=== PATIENT | male | born 1945 | race African-American/Black ===

== ENCOUNTER 2019-06-15 17:53 | Inpatient (IN) | payer MEDICARE ==
[~2019-06-15] VITALS: Ht 190.5 cm; Wt 91.2 kg
[~2019-06-15 17:53] MED LIST: BENI5; HYDR12.529; [UNRECOGNIZED DRUG - OTHER]
[2019-06-15 18:30] VITALS: BP 141/66
[2019-06-15] MEDS ORDERED: ACETAMINOPHEN 325MG TABLET PO PRN (19:30)
[2019-06-15 19:40] VITALS: BP 121/63
[2019-06-15 20:00] VITALS: BP 121/63
[2019-06-15] MEDS ORDERED: DEXTROSE 50% WATER 50ML SYRINGE IV PRN (20:45)
[2019-06-15] MEDS: INSULIN LISPRO 100 UNITS/ML SUBCUT SCH (21:34)
[2019-06-15] MEDS: BLOOD SUGAR DIAGNOSTIC STRIP TEST SCH (21:35)
[2019-06-15 22:00] VITALS: BP 151/72
[2019-06-15 22:51] LABS: CLARITY URINE CLEAR (CLEAR); COLOR URINE YELLOW (YELLOW); KETONES URINE NEGATIVE (NEGATIVE); LEUKOCYTE ESTERASE URINE NEGATIVE (NEGATIVE); NITRITE URINE NEGATIVE (NEGATIVE); OCCULT BLOOD URINE NEGATIVE (NEGATIVE); PH URINE 7.5 (4.5-8.0); PROTEIN URINE NEGATIVE (NEGATIVE); SPECIFIC GRAVITY URINE 1.023 (1.005-1.030)
[2019-06-15 23:33] LABS: CREATINE KINASE MB FRACTION 1.6 ng/mL (0.5-3.6)
[2019-06-16] VITALS (12 sets, daily range): BP systolic 124–154; BP diastolic 64–90
[2019-06-16] MEDS: BLOOD SUGAR DIAGNOSTIC STRIP TEST SCH ×4 (06:35→21:41)
[2019-06-16] MEDS: INSULIN LISPRO 100 UNITS/ML SUBCUT SCH ×7 (06:36→21:00)
[2019-06-16 07:49] LABS: BASOPHILS % 1.1 % (0.0-2.0); EOSINOPHILS % 2.2 % (0.0-5.0); HEMATOCRIT. 38.5 % (42.0-52.0); HEMOGLOBIN. 13.2 g/dL (14.0-18.0); LYMPHOCYTES % 38.6 % (20.0-50.0); MEAN CORPUSCULAR HEMOGLOBIN 30.9 pg (28.0-32.0); MEAN CORPUSCULAR VOLUME 90.4 fL (80.0-94.0); MEAN PLATELET VOLUME 9.5 fl (7.4-10.4); MONOCYTES % 6.9 % (2.0-8.0); NEUTROPHILS % 51.2 % (40.0-76.0); PLATELET 163 x1000/uL (130-400); RED BLOOD CELL COUNT 4.26 mill/uL (4.7-6.1); RED CELL DISTRIBUTION WIDTH 12.8 % (11.6-14.6)
[2019-06-16 08:19] LABS: CHLORIDE 109 mEq/L (98-107)
[2019-06-16 08:30] LABS: CREATINE KINASE 94 IU/L (39-308)
[2019-06-16 08:32] LABS: CREATINE KINASE MB FRACTION 1.5 ng/mL (0.5-3.6)
[2019-06-16] MEDS: LOSARTAN POTASSIUM 50 MG TABLET PO SCH ×2 (09:00→10:27)
[2019-06-16] MEDS: ASPIRIN 81MG EC TABLET PO SCH ×2 (09:00→10:27)
[2019-06-16] MEDS: TAMSULOSIN HCL 0.4MG SR CAPSULE PO SCH ×2 (09:00→10:27)
[2019-06-16] MEDS ORDERED: ENOXAPARIN 40MG/0.4ML SYR SUBCUT SCH (10:00)
[2019-06-16] MEDS: SODIUM CHLORIDE 0.45% 1,000 ML IV SCH ×2 (10:28→22:30)
[2019-06-16] MEDS ORDERED: NICARDIPINE 100MCG/ML 10ML VIAL (CATH LAB) IV ONE (10:57)
[2019-06-16] MEDS ORDERED: HEPARIN SODIUM 1,000 UNIT/1ML VIAL IV ONE (10:57)
[2019-06-16] MEDS ORDERED: NITROGLYCERIN 50MCG/ML 10ML VIAL (CATH LAB) IV ONE (10:57)
[2019-06-16] MEDS ORDERED: ACETAMINOPHEN 325MG TABLET PO PRN (13:45)
[2019-06-16] MEDS ORDERED: ATROPINE SULFATE 1MG/10ML SYR IV PRN (13:45)
[2019-06-16] MEDS ORDERED: ONDANSETRON HCL 4MG/2ML INJ IV PRN (13:45)
[2019-06-16] MEDS ORDERED: IODIXANOL 320MG/ML 100 ML BOTTLE IV ONE (14:12)
[2019-06-16] MEDS ORDERED: LIDOCAINE HCL 1% 20ML VIAL (Pyxis) INJ ONE (14:12)
[2019-06-16] MEDS ORDERED: MIDAZOLAM HCL 2 MG/2 ML VIAL ONE (14:12)
[2019-06-16] MEDS ORDERED: FENTANYL CITRATE/PF 50MCG/ML 2ML VIAL ONE (14:12)
[2019-06-16] MEDS: METOPROLOL TARTRATE 25MG TABLET PO SCH ×2 (16:15→21:00)
[2019-06-16] MEDS ORDERED: MAGNESIUM 1 G PREMIX 100 ML IV SCH (22:00)
[2019-06-17] VITALS (8 sets, daily range): BP systolic 131–173; BP diastolic 60–84
[2019-06-17] MEDS: BLOOD SUGAR DIAGNOSTIC STRIP TEST SCH ×2 (06:26→12:08)
[2019-06-17] MEDS: INSULIN LISPRO 100 UNITS/ML SUBCUT SCH ×3 (06:29→12:11)
[2019-06-17 07:52] LABS: BASOPHILS % 0.9 % (0.0-2.0); HEMATOCRIT. 41.5 % (42.0-52.0); HEMOGLOBIN. 14.2 g/dL (14.0-18.0); LYMPHOCYTES % 30.5 % (20.0-50.0); MEAN CORPUSCULAR HEMOGLOBIN 30.9 pg (28.0-32.0); MEAN PLATELET VOLUME 9.3 fl (7.4-10.4); MONOCYTES % 7.6 % (2.0-8.0); PLATELET 174 x1000/uL (130-400); RED BLOOD CELL COUNT 4.61 mill/uL (4.7-6.1); RED CELL DISTRIBUTION WIDTH 13.1 % (11.6-14.6)
[2019-06-17 08:52] LABS: CHLORIDE 107 mEq/L (98-107)
[2019-06-17] MEDS ORDERED: ASPIRIN 81MG EC TABLET PO SCH (09:00)
[2019-06-17] MEDS ORDERED: PNEUMOCOCCAL 23-VAL P-SAC VAC 0.5 ML IM ONE (09:00)
[2019-06-17 09:12] LABS: LDL CHOLESTEROL 98 mg/dL (5-100)
[2019-06-17 09:13] LABS: HDL CHOLESTEROL 47 mg/dL (40-59)
[2019-06-17] MEDS: TAMSULOSIN HCL 0.4MG SR CAPSULE PO SCH (09:14)
[2019-06-17] MEDS: LOSARTAN POTASSIUM 50 MG TABLET PO SCH (09:14)
[2019-06-17] MEDS: METOPROLOL TARTRATE 25MG TABLET PO SCH (09:15)
[2019-06-17] MEDS ORDERED: METO25TA6 PO (10:51)
== END 2019-06-17 12:22 | disposition home or self-care (01) | DRG 287 ==
LOC: 3WST 17:53
PROVIDERS: ADMIT Internal Medicine Clinical Cardiac Electrophysiology; ATTEND Internal Medicine Clinical Cardiac Electrophysiology
PROC: 4A023N7 Measurement of Cardiac Sampling and Pressure, Left Heart, Percutaneous Approach (ICD-10-PCS; principal; 2019-06-17)
PROC: B2111ZZ Fluoroscopy of Multiple Coronary Arteries using Low Osmolar Contrast (ICD-10-PCS; 2019-06-17)
PROC: B211YZZ Fluoroscopy of Multiple Coronary Arteries using Other Contrast (ICD-10-PCS; 2019-06-17)
DX: I47.2 Ventricular tachycardia (principal); I44.0 Atrioventricular block, first degree; I11.9 Hypertensive heart disease without heart failure; E83.42 Hypomagnesemia; R00.2 Palpitations; E11.9 Type 2 diabetes mellitus without complications; N40.0 Benign prostatic hyperplasia without lower urinary tract symptoms; Z77.22 Contact with and (suspected) exposure to environmental tobacco smoke (acute) (chronic); Z82.49 Family history of ischemic heart disease and other diseases of the circulatory system; Z79.4 Long term (current) use of insulin; Z83.3 Family history of diabetes mellitus; Z87.891 Personal history of nicotine dependence
CPT/HCPCS: 36415; 71045; 80048; 80061; 81003; 82550; 82553; 82962; 83036; 83735; 84443; 84484; 85025; 90732; 93005; 93306; 93458; C1769; C1887; C1893; J1644; J1815; J2250; J3010; J3475; J3490; Q9967

== ENCOUNTER 2021-04-12 13:16 | Emergency (ER) | payer MEDICARE ==
[~2021-04-12] VITALS: Ht 180.3 cm; Wt 90.0 kg
[~2021-04-12 13:16] MED LIST changes: -HYDR12.529; +METO25TA6 PO
[2021-04-12 13:22] VITALS: BP 122/50
== END 2021-04-12 14:15 | disposition left against medical advice (07) ==
LOC: ER 13:16
DX: Z53.21 Procedure and treatment not carried out due to patient leaving prior to being seen by health care provider (principal)
CPT/HCPCS: 93005; 99281